=== PATIENT | female | born 1955 | race Caucasian/White ===

== ENCOUNTER → 2016-09-12 | Outpatient (CLI) | payer BC, OTHER ==
[~2016-09-12] MED LIST: ALDACTONE50 MG PO; ALLEGRA 180MG180 MG PO; CENTRUM SILVER1 TA1 PO; DUO-KAPS1 CAP PO; FOLIC ACID 40400 MCG PO; IRON325 M1 PO; LIPITOR 40MG TA40 MG PO; LIPITOR20 MG PO; LORTAB 5/500 501 TAB PO; LOVENOX 4040 MG/0.4 SQ; NORCO 325 MG-7.1 TAB PO; PREMARIN .3MG0.3 MG PO; PREMARIN 1.251.25 MG PO; PROTONIX 40MG T40 MG PO; VITAMIN C500 MG PO
== END ==
LOC: MC.RAD 07:20
DX: Z12.31 Encounter for screening mammogram for malignant neoplasm of breast (principal)

== ENCOUNTER → 2017-09-29 | Outpatient (CLI) | payer BC, OTHER | LOC: MC.RAD 10:37 | DX: Z12.31 Encounter for screening mammogram for malignant neoplasm of breast (principal) ==

== ENCOUNTER 2018-03-03 10:45 | Outpatient (RCR) | payer BC, OTHER | END 2018-03-04 09:11 | disposition home or self-care (01) | LOC: MKS.ESL.PT 10:45 | DX: H81.12 Benign paroxysmal vertigo, left ear (principal) ==

== ENCOUNTER → 2018-09-30 | Outpatient (CLI) | payer BC, OTHER | LOC: MC.RAD 09:25 | DX: Z12.31 Encounter for screening mammogram for malignant neoplasm of breast (principal) ==

== ENCOUNTER → 2019-10-03 | Outpatient (CLI) | payer BC, OTHER | LOC: MC.RAD 09:23 | DX: Z12.31 Encounter for screening mammogram for malignant neoplasm of breast (principal) ==

== ENCOUNTER → 2020-11-01 | Outpatient (CLI) | payer MEDICARE, OTHER | LOC: COL.RAD 11:53 | DX: S13.160A Subluxation of C5/C6 cervical vertebrae, initial encounter (principal); M50.223 Other cervical disc displacement at C6-C7 level; M50.21 Other cervical disc displacement, high cervical region; M48.02 Spinal stenosis, cervical region; M40.202 Unspecified kyphosis, cervical region; G95.19 Other vascular myelopathies ==

== ENCOUNTER → 2020-11-08 | Outpatient (CLI) | payer MEDICARE, OTHER | LOC: MC.RAD 10:19 | DX: Z12.31 Encounter for screening mammogram for malignant neoplasm of breast (principal); Z78.0 Asymptomatic menopausal state ==

== ENCOUNTER → 2020-12-14 | Outpatient (CLI) | payer MEDICARE, OTHER | LOC: COL.RAD 08:40 | DX: M47.812 Spondylosis without myelopathy or radiculopathy, cervical region (principal) ==

== ENCOUNTER → 2021-12-24 | Outpatient (CLI) | payer MEDICARE, OTHER | LOC: COL.RAD 12:22 | DX: Q87.40 Marfan syndrome, unspecified (principal); I99.8 Other disorder of circulatory system | CPT/HCPCS: Q9967 ==

== ENCOUNTER → 2022-01-13 | Outpatient (CLI) | payer MEDICARE, OTHER | LOC: MC.RAD 13:04 | DX: Z12.31 Encounter for screening mammogram for malignant neoplasm of breast (principal) ==

== ENCOUNTER 2022-04-25 22:06 | Emergency (ER) | payer MEDICARE, OTHER ==
[~2022-04-25] VITALS: Ht 175.3 cm; Wt 92.3 kg
[2022-04-25 22:28] VITALS: TEMP 98.1
[2022-04-25 23:30] VITALS: BP 153/84; PULSE 76
== END 2022-04-25 23:30 | disposition home or self-care (01) ==
LOC: COL.ER 22:06
DX: T81.9XXA Unspecified complication of procedure, initial encounter (principal)

== ENCOUNTER 2022-06-13 09:30 | Day surgery (SDC) | payer MEDICARE, OTHER ==
[~2022-06-13] VITALS: Ht 175.3 cm; Wt 94.3 kg
--- NOTE | 2022-06-13 10:30 | NUR ---
PATIENT ARRIVES AMBULATORY TO ROOM 4. DENIES ANY PAIN OR DISCOMFORT AT THIS TIME, SHE STATED SHE WAS HAVING CLEAR STOOLS AFTER PREP. LAST PO OF SOLID FOODS WAS 06/12/22 AT 0800.
[2022-06-13] MEDS ORDERED: ELIQUIS 5MG PO (10:32)
[2022-06-13 10:33] VITALS: BP 164/102; PULSE 89; TEMP 98.2
[2022-06-13] MEDS ORDERED: LIPITOR20 MG PO (10:54)
[2022-06-13] MEDS ORDERED: COZAAR 50MG50 MG/TAB PO (10:55)
[2022-06-13] MEDS ORDERED: PROTONIX 40MG T40 MG PO (10:55)
[2022-06-13] MEDS ORDERED: FLONASEALLERGY NS (10:56)
[2022-06-13] MEDS ORDERED: CENTRUM SILVER1 CTB PO (10:57)
[2022-06-13] MEDS ORDERED: FISH OIL 1000MG1 CAP PO (10:58)
[2022-06-13] MEDS ORDERED: LIQUIFILM TEARS15 ML OU (10:58)
[2022-06-13] MEDS ORDERED: ALA 100MG PO (10:59)
[2022-06-13] MEDS ORDERED: ZANAFLEX CAPSULE4 MG PO (11:00)
[2022-06-13 11:35] VITALS: BP 132/75; PULSE 80; TEMP 97.8
[2022-06-13 11:50] VITALS: BP 143/94; PULSE 80
[2022-06-13 12:05] VITALS: BP 161/82; PULSE 77
[2022-06-13 12:20] VITALS: BP 170/84; PULSE 80
--- NOTE | 2022-06-13 12:25 | NUR ---
1135 RETURNS TO ROOM. AMBULATES FROM CART TO RECLINER WITH STANDBY ASSIST. SEATED IN RECLINER WITH LEGS ELEVATED. ALERT/ORIENTED. MONITORS APPLIED. VITAL SIGNS OBTAINED.DENIES NAUSEA OR ABD PAIN. IN ROOM. CALL LIGHT AT SIDE. 1200 DISCHARGE INSTRUCTIONS REVIEWED. PATIENT VERBALIZES UMDERSTANDING. COPY PROVIDED IN DISCHARGE FOLDER. 1203 DR. MULLIGAN HERE TO VISIT WITH PATIENT. 1220 DRESSES SELF. DENIES PAIN OR NAUSEA.
[2022-06-13 19:37] VITALS: BP 123/60; PULSE 78
== END 2022-06-13 12:28 | disposition home or self-care (01) ==
LOC: SDCO 09:30
DX: Z12.11 Encounter for screening for malignant neoplasm of colon (principal); K57.30 Diverticulosis of large intestine without perforation or abscess without bleeding
CPT/HCPCS: J2704

== ENCOUNTER → 2024-02-22 | Outpatient (CLI) | payer MEDICARE, OTHER ==
[~2024-02-22] MED LIST changes: +ALA 100MG PO; +AMOXICILLIN 50500 MG PO; +ASPIRIN 81M81 MG/TA2 PO; +CALCIUM 600600 MG PO; +CENTRUM SILVER1 CTB PO; +COREG 6.256.25 MG/TA PO; +COZAAR 50MG50 MG/TAB PO; +ELIQUIS 5MG PO; +FISH OIL 1000MG1 CAP PO; +FLONASEALLERGY NS; +LIQUIFILM TEARS15 ML OU; +OCUVITE1 TA1 PO; +ROXICODONE 55 MG/TAB PO; +SINGULAIR 110 MG/TAB PO; +TAGAMET200 MG PO; +VITAMIN D31000 I1 PO; +ZANAFLEX CAPSULE4 MG PO
== END ==
LOC: MC.RAD 07:53
DX: Z12.31 Encounter for screening mammogram for malignant neoplasm of breast (principal)